=== PATIENT | male | born 1980 | race Caucasian/White ===

== ENCOUNTER 2017-02-23 14:20 | Emergency (ER) | payer SELFPAY ==
[2017-02-23 14:21] VITALS: BP 118/85; PULSE 70; RESP 20; TEMP 98.6; O2SAT 98
--- NOTE | 2017-02-23 14:53 | PD ---
Physical Exam Date Seen by Provider: Feb 23, 2017 Time Seen by Provider: 14:49 Narrative 36-year-old male presents to the emergency department after being seen in a local urgent care with right upper quadrant tenderness, nausea, vomiting, and no oral intake for greater than 24 hours. There is concern for possible cholangitis versus colitis. Patient states low-grade fevers, but denies back pain. Denies diarrhea or pain with urination. Patient is to follow-up last time this morning. No history of diverticulitis or abdominal surgeries in the past. Patient has had hemoptysis 2 this morning. Vitals are reviewed. Patient awaiting bed placement. Data Data Last Documented VS Vital Signs Date Time Temp Pulse Resp B/P (MAP) Pulse Ox O2 Delivery O2 Flow Rate FiO2 02/23/17 14:21 98.6 70 20 118/85 (96) 98 Room Air [facility] Medical Record Reviewed: Yes Supervised Visit with CORY: Yes Condition: Stable Tanvir Mcelroy Feb 23, 2017 14:53
[2017-02-23] MEDS ORDERED: SODIUM CHLOR 0.9% 1000 ML INJ 1,000 ML IV SCH (14:56)
[2017-02-23] MEDS ORDERED: PANTOPRAZOLE SODIUM 40 MG VIAL IVP ONE (15:00)
[2017-02-23] MEDS ORDERED: ONDANSETRON HCL 4 MG/2 ML VIAL IVP ONE (15:00)
[2017-02-23] MEDS ORDERED: FAMOTIDINE 20 MG/2 ML VIAL IV PUSH ONE (15:00)
--- NOTE | 2017-02-23 15:30 | RADRPT ---
EXAM DATE/TIME: 02/23/2017 14:58 [place] COMPARISON: No previous studies available for comparison. INDICATIONS : Right upper quadrant pain. MEDICAL HISTORY : Nausea. Vomiting. Right upper quadrant pain. SURGICAL HISTORY : None. ENCOUNTER: Initial ACUITY: 3 days PAIN SCORE: 5/10 LOCATION: Right upper quadrant MEASUREMENTS: LIVER: 16.1 cm length COMMON DUCT: 3 mm RIGHT KIDNEY: 11.2 x 5.1 x 5.8 cm FINDINGS: LIVER: Normal echotexture without focal lesion or ductal dilatation. COMMON DUCT: No intraluminal mass or stone visualized. GALLBLADDER: There is a large gallstone with dense posterior shadowing. The stone measures up to at least 2.2 x 1. 5 cm. There is no gallbladder wall thickening or pericholecystic fluid. PANCREAS: The visualized portions are within normal limits. RIGHT KIDNEY: No evidence of hydronephrosis, stone, or mass. CONCLUSION: 1. Gallstone with dense posterior shadowing. There is no wall thickening or pericholecystic fluid. 2. No evidence of biliary obstruction. Patric Major MD on February 23, 2017 at 15:27 Board Certified Radiologist. This report was verified electronically.
--- NOTE | 2017-02-23 15:32 | PD ---
HPI Chief Complaint: Abdominal Pain Time Seen by Provider: 15:29 Travel History International Travel<30 days: No Contact w/Intl Traveler<30days: No Traveled to known affect area: No History of Present Illness HPI 36-year-old male that presents to the ED for evaluation of epigastric abdominal pain as well as nausea and vomiting. Per patient his been out of for 3 days. Patient states that he is not getting better. Patient went to an urgent care today and was told to come here as patient did have a right upper quadrant pain and positive Morphy sign. Patient also had an episode of emesis 2 today with some small amount of blood. He denies drinking alcohol or doing drugs. He states that the pain on the abdomen is pressure-like. It comes and goes. Gets worse with touch. Per patient he is not able to eat much because he throws it up. Feels nauseous. Denies any surgeries ever. Patient is Armenian-speaking only and feels comfortable with my Armenian and declined translating services. Per patient the pain is 6 out of 10. He denies taking any medications of any kind. No fevers chills or sweats. No allergies to medication. No trauma. PFSH Social History Alcohol Use: No Tobacco Use: No Substance Use: No Allergies-Medications (Allergen,Severity, Reaction): Coded Allergies: No Known Allergies (Unverified , 02/23/17) Reported Meds & Prescriptions Reported Meds & Active Scripts Active Zofran (Ondansetron HCl) 4 Mg Tab 4 Mg PO Q6HR PRN Zantac (Ranitidine HCl) 150 Mg Tab 150 Mg PO BID Omeprazole 20 Mg Tab 20 Mg PO DAILY Review of Systems Except as stated in HPI: all other systems reviewed are Neg Physical Exam Narrative GENERAL: SKIN: Warm and dry. HEAD: Atraumatic. Normocephalic. EYES: Pupils equal and round. No scleral icterus. No injection or drainage. ENT: No nasal bleeding or discharge. Mucous membranes pink and moist. Tongue is midline. No uvula deviation. NECK: Trachea midline. No JVD. CARDIOVASCULAR: Regular rate and rhythm. No murmurs, S3, S4. RESPIRATORY: No accessory muscle use. Clear to auscultation. Breath sounds equal bilaterally. GASTROINTESTINAL: Abdomen soft, tender to palpation on the right upper quadrant as well as epigastric area. Positive Ca's sign on exam, nondistended. Hepatic and splenic margins not palpable. MUSCULOSKELETAL: Extremities without clubbing, cyanosis, or edema. No obvious deformities. Full range of motion of the upper and lower extremities bilaterally. 2+ pulses bilaterally. NEUROLOGICAL: Awake and alert. No obvious cranial nerve deficits. Motor grossly within normal limits. Five out of 5 muscle strength in the arms and legs. Normal speech. PSYCHIATRIC: Appropriate mood and affect; insight and judgment normal. Data Data Last Documented VS Vital Signs Date Time Temp Pulse Resp B/P (MAP) Pulse Ox O2 Delivery O2 Flow Rate FiO2 02/23/17 14:21 98.6 70 20 118/85 (96) 98 Room Air Orders Orders Complete Blood Count With Diff (02/23/17 14:56) Comprehensive Metabolic Panel (02/23/17 14:56) Lipase (02/23/17 14:56) Lactic Acid (02/23/17 14:56) Prothrombin Time / Inr (Pt) (02/23/17 14:56) Act Partial Throm Time (Ptt) (02/23/17 14:56) Us Abdomen Gallbladder (02/23/17 ) Iv Access Insert/Monitor (02/23/17 14:56) Ecg Monitoring (02/23/17 14:56) Ondansetron Inj (Zofran Inj) (02/23/17 15:00) Pantoprazole Inj (Protonix Inj) (02/23/17 15:00) Sodium Chlor 0.9% 1000 Ml Inj (Ns 1000 M (02/23/17 14:56) Famotidine Inj (Pepcid Inj) (02/23/17 15:00) Al-Mag Hy-Si 40-40-4 Mg/Ml Liq (Mag-Al P (02/23/17 17:00) Lidocaine 2% Viscous (Xylocaine 2% Visco (02/23/17 17:00) Labs Laboratory Tests Test 02/23/17 14:50 White Blood Count 11.8 TH/MM3 Red Blood Count 5.57 MIL/MM3 Hemoglobin 16.3 GM/DL Hematocrit 48.6 % Mean Corpuscular Volume 87.2 FL Mean Corpuscular Hemoglobin 29.2 PG Mean Corpuscular Hemoglobin Concent 33.5 % Red Cell Distribution Width 13.5 % Platelet Count 232 TH/MM3 Mean Platelet Volume 8.5 FL Neutrophils (%) (Auto) 70.3 % Lymphocytes (%) (Auto) 23.3 % Monocytes (%) (Auto) 5.4 % Eosinophils (%) (Auto) 0.3 % Basophils (%) (Auto) 0.7 % Neutrophils # (Auto) 8.3 TH/MM3 Lymphocytes # (Auto) 2.8 TH/MM3 Monocytes # (Auto) 0.6 TH/MM3 Eosinophils # (Auto) 0.0 TH/MM3 Basophils # (Auto) 0.1 TH/MM3 CBC Comment DIFF FINAL Differential Comment Prothrombin Time 11.3 SEC Prothromb Time International Ratio 1.0 RATIO Activated Partial Thromboplast Time 31.3 SEC Blood Urea Nitrogen 12 MG/DL Creatinine 0.71 MG/DL Random Glucose 85 MG/DL Total Protein 8.5 GM/DL Albumin 4.4 GM/DL Calcium Level 8.8 MG/DL Alkaline Phosphatase 91 U/L Aspartate Amino Transf (AST/SGOT) 14 U/L Alanine Aminotransferase (ALT/SGPT) 36 U/L Total Bilirubin 0.9 MG/DL Sodium Level 139 MEQ/L Potassium Level 3.8 MEQ/L Chloride Level 105 MEQ/L Carbon Dioxide Level 28.3 MEQ/L Anion Gap 6 MEQ/L Estimat Glomerular Filtration Rate 124 ML/MIN Lactic Acid Level 1.0 mmol/L Lipase 108 U/L [facility] Medical Decision Making Medical Screen Exam Complete: Yes Emergency Medical Condition: Yes Medical Record Reviewed: Yes Interpretation(s) CBC & BMP Diagram 02/23/17 14:50 Total Protein 8.5 H, Albumin 4.4, Calcium Level 8.8, Alkaline Phosphatase 91, Aspartate Amino Transf (AST/SGOT) 14 L, Alanine Aminotransferase (ALT/SGPT) 36, Total Bilirubin 0.9 Last Impressions Gall Bladder Ultrasound 02/23/17 0000 Signed Impressions: Service Date/Time: Thursday, February 23, 2017 14:58 - CONCLUSION: 1. Gallstone with dense posterior shadowing. There is no wall thickening or pericholecystic fluid. 2. No evidence of biliary obstruction. Patric Major MD lipase WNL Differential Diagnosis Cholecystitis versus cholelithiasis versus pancreatitis versus gastritis versus acute abdomen Narrative Course 36-year-old male that presents to the ED for evaluation of epigastric abdominal pain. Patient was properly examined and was found to have signs and symptoms which are concerning for gallbladder disease versus pancreatitis. Labs and imaging were ordered. Ultrasound was ordered. Patient was started on IV medications for pain as well as nausea and is be fluids. Labs and imaging showed no sign of acute disease. Gallbladder stone noted but no sign of cholecystitis or acute obstruction. Patient was reassured. Patient feels improved. This time I recommend outpatient trial of Zantac, Prilosec as well as Zofran for nausea. I believe that this is likely gastritis. Possibly gallbladder-related but at this time does not appear to be in need for emergent surgery. I do recommend follow-up with general surgeon. This was told to the patient who agrees with plan. See ED worsening symptoms. Follow with PCP. Drink plenty of fluids. Diagnosis Primary Impression: Gastritis Qualified Codes: K29.00 - Acute gastritis without bleeding Patient Instructions: General Instructions Additional Instructions: Take medications as prescribed. Follow with PCP. See ED if worsening symptoms. Follow with general surgery if this continues to be a problem. Med/Other Pt SpecificInfo: Prescription(s) given Scripts Ondansetron (Zofran) 4 Mg Tab 4 MG PO Q6HR Y for NAUSEA OR VOMITING, #15 TAB 0 Refills Prov: Alyssia Garcia DO 02/23/17 Ranitidine (Zantac) 150 Mg Tab 150 MG PO BID for Reduce Stomach Acid, #20 TAB 0 Refills Prov: Alyssia Garcia DO 02/23/17 Omeprazole (Omeprazole) 20 Mg Tab 20 MG PO DAILY, #20 TAB 0 Refills Prov: Alyssia Garcia DO 02/23/17 Disposition: 01 DISCHARGE HOME Condition: Stable Ventura Iyer Feb 23, 2017 15:32
[2017-02-23 16:20] LABS: AUTOMATED NEUTROPHIL # 8.3 TH/MM3 (1.8-7.7); BASOPHIL # 0.1 TH/MM3 (0-0.2); BASOPHIL % 0.7 % (0.0-2.0); EOSINOPHIL % 0.3 % (0.0-4.0); HEMATOCRIT 48.6 % (39.0-51.0); HEMO FLAGS DIFF FINAL; LYMPH % 23.3 % (9.0-44.0); LYMPHOCYTE # 2.8 TH/MM3 (1.0-4.8); MEAN CELL VOLUME 87.2 FL (80.0-100.0); MEAN CORPUSCULAR HEMOGLOBIN 29.2 PG (27.0-34.0); MEAN CORPUSCULAR HGB CONC 33.5 % (32.0-36.0); MONO % 5.4 % (0.0-8.0); NEUT % 70.3 % (16.0-70.0); PLATELET COUNT 232 TH/MM3 (150-450); RED BLOOD COUNT 5.57 MIL/MM3 (4.50-5.90); RED CELL DISTRIBUTION WIDTH 13.5 % (11.6-17.2); WHITE BLOOD COUNT 11.8 TH/MM3 (4.0-11.0)
[2017-02-23 16:35] LABS: APTT (PATIENT) 31.3 SEC (24.3-30.1); PROTHROMBIN TIME - PATIENT 11.3 SEC (9.8-11.6)
[2017-02-23 16:37] LABS: ANION GAP 6 MEQ/L (5-15); AST (GOT) 14 U/L (15-37); BICARBONATE 28.3 MEQ/L (21.0-32.0); BLOOD UREA NITROGEN 12 MG/DL (7-18); CHLORIDE 105 MEQ/L (98-107); GLOMERULAR FILTRATION RATE 124 ML/MIN (>89); POTASSIUM 3.8 MEQ/L (3.5-5.1); SODIUM (NA) 139 MEQ/L (136-145)
[2017-02-23 16:39] LABS: ALKALINE PHOSPHATASE 91 U/L (45-117); ALT (GPT) 36 U/L (12-78); TOTAL BILIRUBIN ADULT 0.9 MG/DL (0.2-1.0)
[2017-02-23] MEDS ORDERED: ALUMINUM/MAGNESIUM/SIMETH 30 ML CUP PO ONE (17:00)
[2017-02-23] MEDS ORDERED: LIDOCAINE VISCOUS 2% SOLN 15 ML UDC PO ONE (17:00)
[2017-02-23] MEDS ORDERED: ZANT150T2 PO (17:11)
[2017-02-23] MEDS ORDERED: OMEP20TA PO (17:11)
[2017-02-23] MEDS ORDERED: ZOFR4TAB PO (17:11)
== END 2017-02-23 17:30 | disposition home or self-care (01) ==
LOC: NEPE 14:20
DX: K29.00 Acute gastritis without bleeding (principal); K80.20 Calculus of gallbladder without cholecystitis without obstruction
CPT/HCPCS: 76705; 80053; 83605; 83690; 85025; 85610; 85730; 96374; 96375; 99285; C9113; J2405; J7030